=== PATIENT | female | born 1975 | race Hispanic/Latino ===

== ENCOUNTER 2018-04-16 08:31 | Outpatient (CLI) | payer BC ==
[2018-04-16] MEDS ORDERED: KINEVAC IV ONE (09:51)
[2018-04-16] MEDS ORDERED: KINEVAC IV NR (09:57)
--- NOTE | 2018-04-16 12:35 | Nuclear Medicine Report ---
NUCLEAR MEDICINE HEPATOBILIARY SCAN: 04/16/18 08:44:00 CLINICAL: Nausea. TECHNIQUE: 5.0mCi technetium 99m Choletec was injected intravenously. Serial images were obtained up to 90 minutes. 2.09 mcg of Kinevac was injected intravenously by slow infusion at ninety minutes. A gallbladder ejection fraction was calculated. FINDINGS: Normal activity in the liver, bile ducts and small bowel. Normal gallbladder activity is apparent at twenty minutes. The gallbladder ejection fraction is calculated to be 37%. The original symptom of nausea was reproduced with the Kinevac injection. IMPRESSION: No evidence of acute cholecystitis. A low normal gall bladder ejection fraction and reproduction of symptoms with the Kinevac injection. These findings suggest gallbladder dyskinesis.
== END 2018-04-16 08:32 | disposition home or self-care (01) ==
LOC: NM 08:31
PROVIDERS: ATTEND Internal Medicine Gastroenterology
DX: R11.0 Nausea (principal)
CPT/HCPCS: 78227; A9537; J2805